=== PATIENT | male | born 1975 | race Asian ===

== ENCOUNTER 2022-02-21 10:35 | Emergency (ER) | payer BC ==
[~2022-02-21] VITALS: Ht 177.8 cm; Wt 95.3 kg
--- NOTE | 2022-02-21 11:00 | NUR ---
[id number] HOME, C/O GENERALIZED WEAKNESS X 1 WEEK. WAS RECENTLY DIAGNOSED W/ LARYNGITIS COUPLE DAYS AGO. PLACED ON BED, AAOX4, BREATHING EVEN AND UNLABORED SATURATING AT 97%RA.
--- NOTE | 2022-02-21 11:27 | NUR ---
BLOOD DRAWN AND SENT TO LAB
[2022-02-21] MEDS ORDERED: IV NS 0.9% 2,000 ML IV ONE (11:30)
[2022-02-21 12:01] LABS: CALCIUM, SERUM 8.5 mg/dL (8.5-10.1); CREATININE 1.2 mg/dL (0.6-1.3); POTASSIUM 4.5 mmol/L (3.5-5.1)
[2022-02-21 12:14] LABS: ALBUMIN 3.5 g/dL (3.4-5.0); BILIRUBIN,TOTAL 0.5 mg/dL (0.2-1.0); TOTAL PROTEIN, SERUM 7.3 g/dL (6.4-8.2)
[2022-02-21 12:21] LABS: BASOPHILS % (AUTO) 0.3 % (0.0-2.0); EOSINOPHILS % (AUTO) 0.4 % (0.0-6.0); HEMATOCRIT 43 % (39-51); HEMOGLOBIN 12.9 g/dL (13.5-17.5); LYMPHOCYTES # (AUTO) 0.9 K/uL (0.8-4.8); LYMPHOCYTES % (AUTO) 9.5 % (20.0-44.0); MEAN CORPUSCULAR HGB CONC 30 g/dl (31.0-36.0); MEAN CORPUSCULAR VOLUME 69 fL (80-96); MONOCYTES # (AUTO) 0.5 K/uL (0.1-1.30); MONOCYTES % (AUTO) 5.3 % (2.0-12.0); NEUTROPHILS # (AUTO) 8.4 K/uL (1.8-8.9); NEUTROPHILS % (AUTO) 84.5 % (43.0-81.0); PLATELET COUNT (AUTO) 260 K/uL (150-450); RED BLOOD CELL COUNT(AUTO) 6.14 MIL/uL (4.5-6.0)
[2022-02-21 12:45] LABS: THYROID STIMULATING HORMONE 1.907 uIU/mL (0.358-3.74)
--- NOTE | 2022-02-21 13:35 | NUR ---
PATIENT TAKEN TO CT VIA DEMI
[2022-02-21 15:57] LABS: BAND % (MANUAL) 4 % (0.0-5.0); LYMPHOCYTES % (MANUAL) 11 % (16-48); MONOCYTES % (MANUAL) 5 % (0-11.0)
[2022-02-21 15:58] LABS: NEUTROPHILS % (MANUAL) 80 (42-76)
[2022-02-21] MEDS ORDERED: GUAI-671 PO (16:57)
--- NOTE | 2022-02-21 17:49 | NUR ---
IV removed. Catheter intact and site benign. Pressure and 4x4 applied to site. No bleeding noted.
--- NOTE | 2022-02-21 17:50 | NUR ---
Patient discharged to home in stable condition. Written and verbal after care instructions given. Patient verbalizes understanding of instruction.
[2022-02-21 18:11] VITALS: BP 141/65
== END 2022-02-21 17:50 | disposition home or self-care (01) ==
LOC: ER 10:36
DX: R53.1 Weakness (principal); R41.0 Disorientation, unspecified; I10 Essential (primary) hypertension
CPT/HCPCS: 99284; 72125; 96360; 96361; 70450; 85025; 36415; 84439; 84443; 80053; 84484; 83880; 85007; J7030